=== PATIENT | male | born 1955 | race Caucasian/White ===

== ENCOUNTER → 2018-12-22 08:58 | Outpatient (CLI) | payer MEDICARE, SELFPAY | PROVIDERS: Family Provider Internal Medicine; PCP Internal Medicine; Referring Provider Nurse Practitioner Adult Health; Visit Provider Nurse Practitioner Adult Health | DX: Z12.5 Encounter for screening for malignant neoplasm of prostate (principal); R36.1 Hematospermia | CPT/HCPCS: 36415; 84153; G0103 ==

== ENCOUNTER 2019-01-24 05:47 | Emergency (ER) | payer MEDICARE, SELFPAY ==
[2019-01-24 05:49] VITALS: BP 149/85; PULSE 62; RESP 15; TEMP 36.5; O2SAT 97; BMI 27.8
--- NOTE | 2019-01-24 06:11 | RAD_ITS ---
STUDY: X-RAY - LUMBAR SPINE REASON FOR EXAM: Male, 63 years old. Fall yesterday. Severe lower back pain TECHNIQUE: 3 view(s) of the lumbar spine were obtained. COMPARISON: None FINDINGS: Normal lumbar lordosis. There is a mild levoscoliosis of the lumbar spine. There is a normal alignment of the vertebrae. There is multilevel endplate spondylosis of the lumbar vertebrae. Normal disc space heights. The soft tissue structures are unremarkable. RAD/Lumbar Spine 2 or 3 Views IMPRESSION: Degenerative changes of the spine, as detailed above. Electronically Signed: Janeth Estrada, at 7:57 EDT Tel , Service support ,
[2019-01-24] MEDS: Ketorolac 60 MG/2 ML Vial IM (06:19)
[2019-01-24] MEDS: Orphenadrine 60 MG/2 ML Ampul IM (06:19)
[2019-01-24] MEDS: morphine 8 MG/ML Syringe IM (07:11)
--- NOTE | 2019-01-24 07:45 | ED.VISSUMM ---
- ER Visit Summary Date of Service: 01/24/19 Chief Complaint: Back pain History of Present Illness: The patient is a 63 M who presents with back pain. This began about 12 hours ago. He tripped and fell in a twisted position against the barn wall. He states he immediately felt nauseated and became diaphoretic injury. Continues to have pain. He denies any numbness tingling weakness radiation of the legs fevers abdominal pain urinary retention or fecal incontinence. Physical Examination: Afebrile vitals unremarkable Patient does appear to be in pain Heart regular Lungs clear Patient has right paraspinal lumbar tenderness Negative straight leg raise bilaterally Normal strength and sensation of the lower extremities with 5 out of 5 dorsiflexion, plantarflexion, extensor hallucis longus Test Results: Lumbar x-rays on my review show no acute bony abnormality no fracture, radiology read is ending. Emergency Department Course and Treatment: Patient was initially treated with Toradol and Norflex without significant relief of symptoms. He was given IM morphine with market relief. We will discharge with Percocet. He understands to return for new or worsening symptoms and was advised on signs and symptoms to monitor for. Treatment Plan: [] Disposition: Discharge Impression: Lumbosacral strain This note was generated with [employer] dictation software. It may contain incorrect words, spelling, and punctuation that were not noted in review of the chart prior to signing ED Disposition - Plan for ED Patient: Referrals: Génesis Dale DO [Primary Care Provider] -
--- NOTE | 2019-01-24 07:47 | ED.DEP ---
ED Disposition - Plan for ED Patient: Instructions: Back Sprain/Strain Prescriptions: Oxycodone HCl/Acetaminophen [Percocet 5/325] 1 tab PO Q6H PRN PRN 3 Days #12 tab PRN Reason: Pain Prescription Printed Referrals: Génesis Dale DO [Primary Care Provider] -
[2019-01-24 07:57] VITALS: BP 126/76; PULSE 51; RESP 18; O2SAT 98
== END 2019-01-24 07:58 | disposition home or self-care (01) ==
PROVIDERS: Emergency Provider Emergency Medicine; Family Provider Internal Medicine; PCP Internal Medicine
DX: S39.012A Strain of muscle, fascia and tendon of lower back, initial encounter (principal); W01.10XA Fall on same level from slipping, tripping and stumbling with subsequent striking against unspecified object, initial encounter; Y93.9 Activity, unspecified; Y92.71 Barn as the place of occurrence of the external cause; Y99.9 Unspecified external cause status; E11.9 Type 2 diabetes mellitus without complications; K21.9 Gastro-esophageal reflux disease without esophagitis; Z79.84 Long term (current) use of oral hypoglycemic drugs; Z79.899 Other long term (current) drug therapy
CPT/HCPCS: 72100; 96372; 99282

== ENCOUNTER → 2019-06-04 10:22 | Outpatient (CLI) | payer MEDICARE, SELFPAY ==
[2019-06-04 11:45] LABS: EXAGEN MAILED SPECIMEN
[2019-06-04 12:37] LABS: Erythrocyte Sedimentation Rate 3 mm/hr (0-20)
[2019-06-04 12:42] LABS: Absolute Lymphocyte Count 1.87 X10^3/uL (0.83-4.51); Absolute Neutrophil Count 4.2 X10^3/uL (2.0-7.7); Basophil# 0.05 X10^3/uL; Basophil% 0.7 % (0-1); Color, Urine Yellow (Yellow); Eosinophil# 0.14 X10^3/uL; Glucose, Dipstick Normal (Normal); Hematocrit 47.8 % (40-54); Hemoglobin 15.2 g/dL (13.0-16.5); Ketone-Dipstick Negative (Negative); Leukocyte Esterase-Dipstick Negative /ul (Negative); Lymphocyte # 1.87 X10^3/ul (4.0); Lymphocyte % 26.7 % (19-41); Mean Corp Hgb Conc 31.8 g/dL (32-36); Mean Corpuscular Hgb 29.9 pg (27.0-32.0); Mean Corpuscular Volume 94.1 fL (80-94); Mean Platelet Vol. 10.6 fl (6.2-12.0); Monocyte# 0.76 X10^3/uL; Monocyte% 10.9 % (0-10); NRBC Flagged by Analyzer 0 % (0-5); Neutrophil # 4.15 X10^3/uL (2.7-7.7); Neutrophil % 59.3 % (47-70); Nitrite-Dipstick Negative (Negative); Occult Blood-Urine Negative /ul (Negative); Platelet Count 259 K/mm3 (150-450); Protein-Dipstick Negative (Negative); RBC Distribution Width CV 12.8 % (11.6-14.6); RBC Distribution Width SD 44.4 fl (35.1-43.9); Red Blood Count 5.08 M/mm3 (4.6-6.2); Specific Gravity, Urine 1.015 (1.002-1.030); Urine Bilirubin Dipstick Negative (Negative); Urine Clarity Clear (Clear); Urine Urobilinogen Normal (Normal)
[2019-06-04 13:15] LABS: Protein, Urine (Random) 8.5 mg/dL (<11.9); Protein:Creat Ratio 112 mg/g CRE (0-200)
[2019-06-04 13:16] LABS: ALB/GLOB Ratio 1.1 RATIO (0.9-2.4); AST(SGOT) 16 U/L (15-37); Alanine Aminotransfer ALT/SGPT 31 U/L (16-61); Albumin, Serum 4.1 g/dL (3.2-5.0); Alkaline Phosphatase 74 U/L (45-117); Anion Gap 8 (5-15); BUN 22 mg/dL (7-18); CRP 7.03 mg/L (0.0-3.0); Calcium,Total 9.1 mg/dL (8.5-10.1); Chloride 106 mmol/L (98-107); EST Glomerular Filtration Rate 71 mL/min (>60); Est Glom Filt Rate - Afr Amer 86 mL/min (>60); Globulin 3.7 g/dL (2.2-4.2); Glucose 87 mg/dL (74-106); Protein, Total 7.8 g/dL (6.4-8.2); Sodium Level 141 mmol/L (136-145)
== END ==
PROVIDERS: Family Provider Internal Medicine; PCP Internal Medicine; Referring Provider Internal Medicine Rheumatology; Visit Provider Internal Medicine Rheumatology
DX: M06.4 Inflammatory polyarthropathy (principal); M34.9 Systemic sclerosis, unspecified; R76.8 Other specified abnormal immunological findings in serum
CPT/HCPCS: 36415; 80053; 81002; 82570; 84156; 85025; 85652; 86140

== ENCOUNTER 2020-10-05 11:13 | Outpatient (RCR) | payer MEDICARE, OTHER, SELFPAY ==
[2020-10-05] MEDS: COVID-19 VACC, MRNA(PFIZER)/PF 30 MCG/0.3 ML SYRINGE IM (07:32)
[2020-10-26] MEDS: COVID-19 VACC, MRNA(PFIZER)/PF 30 MCG/0.3 ML SYRINGE IM (07:25)
== END 2020-10-05 23:59 ==
LOC: IMMUN 11:13
PROVIDERS: PCP Internal Medicine; Visit Provider Family Medicine
DX: Z23 Encounter for immunization (principal)
CPT/HCPCS: 0001A; 0002A

== ENCOUNTER → 2020-10-26 07:42 | Outpatient (CLI) | payer MEDICARE, SELFPAY ==
[2020-10-26 09:45] LABS: PSA,Total- Diagnostic 4.66 ng/mL (0.0-4.0)
== END ==
PROVIDERS: PCP Internal Medicine; Referring Provider Nurse Practitioner Adult Health; Visit Provider Nurse Practitioner Adult Health
DX: R97.20 Elevated prostate specific antigen [PSA] (principal)
CPT/HCPCS: 36415; 84153

== ENCOUNTER → 2021-05-07 07:14 | Outpatient (CLI) | payer MEDICARE, OTHER, SELFPAY ==
[2021-05-07 08:51] LABS: PSA,Total- Diagnostic 4.76 ng/mL (0.0-4.0)
== END ==
PROVIDERS: PCP Internal Medicine; Referring Provider Nurse Practitioner Adult Health; Visit Provider Nurse Practitioner Adult Health
DX: R97.20 Elevated prostate specific antigen [PSA] (principal)
CPT/HCPCS: 36415; 84153

== ENCOUNTER → 2021-07-30 10:28 | Outpatient (CLI) | payer MEDICARE, OTHER, SELFPAY ==
--- NOTE | 2021-07-30 10:44 | RAD_ITS ---
INDICATION: ENCOUNTER FOR PRE PROCEDURALRESP. EXAM EXAMINATION/TECHNIQUE: X-RAY - XR Chest 2 Views COMPARISON: None. FINDINGS: LINES/DEVICES: None. LUNGS: No consolidation, edema or effusion. No pneumothorax. MEDIASTINUM AND CARDIOVASCULAR STRUCTURES: Cardiac silhouette not enlarged. Central airways and mediastinal contour are unremarkable. BONES AND SOFT TISSUES: Unremarkable. RAD/Chest PA and Lateral IMPRESSION: No radiographic evidence of acute cardiopulmonary disease. Electronically Signed: Bam Kothari MD at 11:55 EST Tel , Service support ,
[2021-07-30 11:29] LABS: Absolute Lymphocyte Count 1.87 X10^3/uL (0.83-4.51); Absolute Neutrophil Count 5.2 X10^3/uL (2.0-7.7); Basophil# 0.04 X10^3/uL; Basophil% 0.5 % (0-1); Eosinophil# 0.08 X10^3/uL; Hematocrit 44.9 % (40-54); Hemoglobin 14.4 g/dL (13.0-16.5); Lymphocyte # 1.87 X10^3/ul (0.83-4.51); Lymphocyte % 23.6 % (19-41); Mean Corp Hgb Conc 32.1 g/dL (32-36); Mean Corpuscular Hgb 29.9 pg (27.0-32.0); Mean Corpuscular Volume 93.3 fL (80-94); Mean Platelet Vol. 10.4 fl (6.2-12.0); Monocyte# 0.77 X10^3/uL; Monocyte% 9.7 % (0-10); NRBC Flagged by Analyzer 0 % (0-5); Neutrophil # 5.15 X10^3/uL (2.7-7.7); Neutrophil % 64.8 % (47-70); Platelet Count 278 K/mm3 (150-450); RBC Distribution Width CV 13.4 % (11.6-14.6); RBC Distribution Width SD 46.1 fl (35.1-43.9); Red Blood Count 4.81 M/mm3 (4.6-6.2); White Blood Count 7.9 K/mm3 (4.4-11.0)
[2021-07-30 11:48] LABS: Anion Gap 5 (5-15); BUN 20 mg/dL (7-18); BUN/Creat Ratio 17.7 RATIO (10-20); Calcium,Total 9.5 mg/dL (8.5-10.1); Chloride 108 mmol/L (98-107); Creatinine, Serum 1.13 mg/dL (0.70-1.30); EST Glomerular Filtration Rate 69 mL/min (>60); Est Glom Filt Rate - Afr Amer 83 mL/min (>60); Glucose 102 mg/dL (74-106); Potassium 4.3 mmol/L (3.5-5.1); Sodium Level 141 mmol/L (136-145)
[2021-07-30 12:30] LABS: Hemoglobin A1c 5.5 % (3.8-5.6)
== END ==
PROVIDERS: PCP Internal Medicine; Visit Provider Physician Assistant Surgical
DX: Z01.818 Encounter for other preprocedural examination (principal)
CPT/HCPCS: 36415; 71046; 80048; 82040; 83036; 85025

== ENCOUNTER → 2021-08-01 06:38 | Outpatient (CLI) | payer MEDICARE, OTHER, SELFPAY ==
--- NOTE | 2021-08-01 06:39 | CT_ITS ---
STUDY: CT Lower Extremity W/O Contrast Injection 08/01/2021 2:32 PM REASON FOR EXAM: Male, 66 years old. LFT KNEE PAIN Individualized dose optimization techniques were used for this CT. TECHNIQUE: LFT KNEE PAIN CATHY protocol COMPARISON: No priors for comparison. FINDINGS: A sachin was placed along the lateral aspect of the patient''s lower extremity. CT scans were obtained over the hip, knee, and ankle, separately. IMPRESSION: The images will be utilized by the surgical prosthesis piercing specialist for measurement and planning purposes.. Electronically Signed: Bhargav Bonner MD at 14:33 EST , Service support , CT/Extremity Lower without Contra
== END ==
PROVIDERS: PCP Internal Medicine; Referring Provider Specialist; Visit Provider Specialist
DX: M21.162 Varus deformity, not elsewhere classified, left knee (principal)
CPT/HCPCS: 73700

== ENCOUNTER 2021-10-10 10:36 | Emergency (ER) | payer MEDICARE, OTHER, SELFPAY ==
[2021-10-10 10:39] VITALS: BP 139/105; PULSE 85; RESP 17; TEMP 35.6; O2SAT 100; BMI 27.2
--- NOTE | 2021-10-10 10:55 | EX.ED.GENINJ ---
HPI History of Present Illness Chief Complaint: Laceration Informant: patient Narrative Narrative: Patient at the tip of his left small finger of nondominant hand with a sharp knife at home while cutting onions. This happened shortly before arrival. Last tetanus is not known. There was no significant bleeding. No other injury. Nothing really makes better or worse. [facility] Medical History Diabetes mellitus GERD (gastroesophageal reflux disease) Home Medications lansoprazole 30 mg PO DAILY 01/24/19 [History Last Taken Unknown] metformin 500 mg PO BID 01/24/19 [History Last Taken Unknown] Allergy/AdvReac Type Severity Reaction Status Date / Time No Known Allergies Allergy Verified 10/10/21 10:38 Surgical History Knee joint replacement status Social History Smoking Status: Never smoker ROS [facility] ED Gastrointestinal Gastrointestinal: Denies nausea or vomiting Musculoskeletal Musculoskeletal: Reports other Details: Laceration as above. Integumentary Reports other Details: Laceration as above. 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 He has a flap type laceration with a very small bit of tissue holding that flap on at the very distal tip of his left small finger. No tendon dysfunction. There may be some slight decrease sensation of that flap but it is just the distal portion. No active bleeding. Nail is still intact. Neuro Sensorium / Orientation: alert Motor Exam: strength 5/5 throughout Skin Skin Narrative: Laceration as above. Total length around the laceration is 1.5 cm. MDM MDM MDM Narrative Medical decision making narrative: After anesthesia of his finger, patient got up and walked in the room and he felt a little lightheaded. He states he felt this way after he got Demerol once. The symptoms passed and he feels fine now. He just got a little lightheaded and almost sweaty. He states he was not short of breath or having chest pain or any neurologic symptoms. This has happened before. He feels fine now. I did do an EKG that showed no acute process. Procedure: Suture laceration: We discussed options. Although this laceration is not large, it is a flap and would like to get full coverage. We did a digital block with a total of 3 cc of 1% lidocaine and 0.5% Marcaine mixed 50: 50. He obtained good anesthesia. We scrubbed the hand and irrigated. I lifted up the flap and cleaned under it. I actually held the flap down with just a single stitch at the base of the V shaped flap. This held it down well and I do not think it needs further stitching. This also allows some drainage from each side. He tolerated this portion well. Sutures out in 10 days. Discharge Plan Triage Chief Complaint: Laceration ED Provider: Surjit Ahmadi Dx/Rx/DC Orders Clinical Impression: Laceration of left little finger Instructions: ED Laceration, Hand: All Closures Prescriptions: No Action metformin 500 MG tablet 500 mg PO BID RF: 0 lansoprazole 30 MG capsule 30 mg PO DAILY RF: 0 Primary Care Provider: Génesis Dale Referrals: Génesis Dale DO [Primary Care Provider] - 10-14 Days suture removal Disposition Disposition: Home, Self Care
[2021-10-10] MEDS: Diphth,Pertuss(Acell),Tet Vac 0.5 ML Vial IM (11:06)
[2021-10-10] MEDS: Lidocaine 1% (20 ml mdv) 20 ML Vial INFILT (11:51)
[2021-10-10] MEDS: Bupivacaine Mpf 0.5% 30 ML VIAL INFILT (11:52)
[2021-10-10 11:59] VITALS: BP 163/91; PULSE 67; RESP 17; O2SAT 98
--- NOTE | 2021-10-10 12:01 | ED.RN ---
Patient reports dizziness and diaphoresis starting while up walking. Patient now laying in bed, vital signs taken and MD notified. EKG ordered.
--- NOTE | 2021-10-10 12:15 | EKG12_ITS ---
Test Reason : DIAPHRETIC Blood Pressure : / mmHG Vent. Rate : 062 BPM Atrial Rate : 062 BPM P-R Int : 158 ms QRS Dur : 100 ms QT Int : 434 ms P-R-T Axes : 064 038 045 degrees QTc Int : 440 ms Normal sinus rhythm Normal ECG Confirmed by SWETA ENGLE, PATI ([id number]), international editorial producer OPHELIA ADKINS ([id number]) on 10/11/2021 10:12:12 AM Referred By: ER Confirmed By:PATI SOL MD
[2021-10-10 12:51] VITALS: BP 129/74; PULSE 79; RESP 17; O2SAT 97
== END 2021-10-10 13:15 | disposition home or self-care (01) ==
PROVIDERS: Emergency Provider Emergency Medicine; PCP Internal Medicine; Visit Provider Emergency Medicine
DX: S61.217A Laceration without foreign body of left little finger without damage to nail, initial encounter (principal); E11.9 Type 2 diabetes mellitus without complications; W26.0XXA Contact with knife, initial encounter; Y93.G1 Activity, food preparation and clean up; Z23 Encounter for immunization; R42 Dizziness and giddiness; K21.9 Gastro-esophageal reflux disease without esophagitis; Z79.84 Long term (current) use of oral hypoglycemic drugs; Z79.899 Other long term (current) drug therapy
CPT/HCPCS: 12001; 90471; 90715; 93005; 99283

== ENCOUNTER → 2022-05-21 | Outpatient (CLI) | payer MEDICARE, OTHER, SELFPAY ==
[2022-05-21 08:49] LABS: PSA,Total - Annual Screen 5.29 ng/mL (0.00-4.00)
== END | disposition home or self-care (01) ==
LOC: LAB 07:52
PROVIDERS: Urology; PCP Internal Medicine; Referring Provider Nurse Practitioner Adult Health; Visit Provider Nurse Practitioner Adult Health
DX: Z12.5 Encounter for screening for malignant neoplasm of prostate (principal)
CPT/HCPCS: 36415; 84153; G0103

== ENCOUNTER → 2022-06-05 | Outpatient (CLI) | payer MEDICARE, OTHER, SELFPAY ==
--- NOTE | 2022-06-05 10:25 | RAD_ITS ---
EXAM: XR CHEST, 2 VIEWS CLINICAL INDICATION: SCLERODERMA TECHNIQUE: Frontal and lateral views of the chest. This report was created using [employer] report generation technology. COMPARISON: July 30, 2021 FINDINGS: LUNGS AND PLEURAL SPACES: Unremarkable. No consolidation or edema. No pneumothorax. No effusion. HEART: Unremarkable. Cardiac silhouette not enlarged. MEDIASTINUM: Central airways and mediastinal contour are unremarkable. BONES/JOINTS: Degenerative changes of the spine. Diffuse osteopenia. SOFT TISSUES: Unremarkable. RAD/Chest PA and Lateral IMPRESSION: No acute disease. Electronically Signed: Larry Leonard MD at 1:23 EDT ,
[2022-06-06 15:14] LABS: PSA, Free 1.12 ng/mL; PSA, Free % 20.3 % (.)
== END | disposition home or self-care (01) ==
PROVIDERS: PCP Family Medicine; Visit Provider Urology
DX: R97.20 Elevated prostate specific antigen [PSA] (principal); M34.9 Systemic sclerosis, unspecified
CPT/HCPCS: 36415; 71046; 84153; 84154

== ENCOUNTER → 2023-06-02 | Outpatient (CLI) | payer MEDICARE, OTHER, SELFPAY ==
[2023-06-02 10:34] LABS: PSA,Total- Diagnostic 7.88 ng/mL (0.0-4.0)
== END | disposition home or self-care (01) ==
LOC: LAB 08:38
PROVIDERS: PCP Family Medicine; Referring Provider Urology; Visit Provider Urology
DX: R97.20 Elevated prostate specific antigen [PSA] (principal)
CPT/HCPCS: 36415; 84153

== ENCOUNTER → 2023-08-05 | Outpatient (CLI) | payer MEDICARE, OTHER, SELFPAY ==
[2023-08-05 09:33] LABS: PSA,Total- Diagnostic 5.75 ng/mL (0.0-4.0)
== END | disposition home or self-care (01) ==
LOC: LAB 07:03
PROVIDERS: PCP Family Medicine; Referring Provider Urology; Visit Provider Urology
DX: R97.20 Elevated prostate specific antigen [PSA] (principal)
CPT/HCPCS: 36415; 84153

== ENCOUNTER → 2024-06-03 | Outpatient (CLI) | payer MEDICARE, OTHER, SELFPAY ==
[2024-06-03 10:18] LABS: PSA,Total- Diagnostic 6.13 ng/mL (0.0-4.0)
== END | disposition home or self-care (01) ==
LOC: LAB 08:21
PROVIDERS: PCP Family Medicine; Referring Provider Nurse Practitioner; Visit Provider Nurse Practitioner
DX: R97.20 Elevated prostate specific antigen [PSA] (principal)
CPT/HCPCS: 36415; 84153

== ENCOUNTER → 2025-05-16 | Outpatient (CLI) | payer MEDICARE, OTHER, SELFPAY ==
[2025-05-16 10:32] LABS: PSA,Total- Diagnostic 6.09 ng/mL (0.00-4.00)
== END | disposition home or self-care (01) ==
LOC: LAB 09:21
PROVIDERS: PCP Family Medicine; Referring Provider Urology; Visit Provider Urology
DX: R97.20 Elevated prostate specific antigen [PSA] (principal)
CPT/HCPCS: 36415; 84153